=== PATIENT | male | born 1960 | race Caucasian/White ===

== ENCOUNTER 2017-08-15 13:59 | Outpatient (CLI) | payer BC ==
[2017-08-15 15:21] LABS: #Basophils 0.1 thou/uL (0.0-0.2); #Eosinphils 0.1 thou/uL (0.0-0.7); #Lymphocytes 1.5 thou/uL (1.20-3.40); #Monocytes 0.8 thou/uL (0.11-0.59); #Neutrophils 7.6 thou/uL (1.40-6.50); %Basophils 0.6 % (0.0-1.0); %Eosinophils 1.1 % (0.0-10.0); %Lymphocytes 15.1 % (21.0-51.0); %Monocytes 7.5 % (0.0-10.0); %Neutrophils 75.8 % (42.0-75.0); Hemoglobin 15.8 g/dL (14.0-18.0); Mean Corpuscular HGB CONC 35.5 g/dL (32.0-36.0); Mean Corpuscular Hemoglobin 31.3 pg (27.0-31.0); Mean Corpuscular Volume 88.2 fl (80.0-94.0); Mean Platelet Volume 8.5 fL (7.4-10.4); Platelet Count 229 thou/uL (130-400); RBC Distribution Width 12.5 % (11.5-14.5); Red Blood Cell (RBC) Count 5.04 mill/uL (4.70-6.10)
[2017-08-15 15:44] LABS: Anion Gap 13 mmol/L (10-20); BUN (Urea Nitrogen) 19 mg/dL (8.4-25.7); Calc. Creatinine Clearance 0 mL/min (70-130); Calcium 9.2 mg/dL (7.8-10.44); Carbon Dioxide 26 mmol/L (22-29); Chloride 101 mmol/L (98-107); Estimated GFR-MDRD 64; Glucose 274 mg/dL (70-105); Potassium 3.9 mmol/L (3.5-5.1); Sodium 136 mmol/L (136-145)
--- NOTE | 2017-08-16 07:38 | EKG ---
Test Reason : Blood Pressure : / mmHG Vent. Rate : 087 BPM Atrial Rate : 087 BPM P-R Int : 152 ms QRS Dur : 092 ms QT Int : 380 ms P-R-T Axes : 055 048 022 degrees QTc Int : 457 ms Normal sinus rhythm Cannot rule out Inferior infarct , age undetermined Intraventricular conduction delay Abnormal ECG When compared with ECG of 07-OCT-2003 21:10, No significant change was found Confirmed by DR. Mark MCKEON ([id number]) on 08/16/2017 7:38:28 AM Referred By: LILLIANA Confirmed By:DR. Mark MCKEON
== END 2017-08-15 14:00 | disposition home or self-care (01) ==
LOC: LABBT 13:59
PROVIDERS: ATTEND Orthopaedic Surgery
DX: Z01.818 Encounter for other preprocedural examination (principal); M75.101 Unspecified rotator cuff tear or rupture of right shoulder, not specified as traumatic
CPT/HCPCS: 80048; 85025; 93005; 93010

== ENCOUNTER 2017-08-17 05:49 | Day surgery (SDC) | payer BC ==
[2017-08-15 14:32] VITALS: BMI 31.5
[2017-08-17] MEDS ORDERED: CEFAZOLIN/Water 2 GM/20 ML SYRINGE ONE (06:25)
[2017-08-17] MEDS ORDERED: Fentanyl 100 MCG/2 ML VIAL ONE ×2 (06:29→07:28)
[2017-08-17] MEDS ORDERED: Midazolam HCl 2 mg/2 ml Vial ONE (06:29)
[2017-08-17] MEDS ORDERED: Lidocaine 1% (PF) 30 ML VIAL ONE (06:44)
[2017-08-17] MEDS ORDERED: Bupivacaine/Epinephrine 0.25% 30 ML VIAL ONE (06:56)
[2017-08-17] MEDS ORDERED: Ketorolac Tromethamine 30 MG/ML VIAL IVP PRN (07:18)
[2017-08-17] MEDS ORDERED: Ondansetron HCl/PF 4 MG/2 ML Vial IVP PRN (07:18)
[2017-08-17] MEDS ORDERED: traMADol HCl 50 MG TAB PO PRN ×2 (07:18)
[2017-08-17] MEDS ORDERED: Ropivacaine 0.2% 550 ML 550 ML NERVE BLCK SCH (07:18)
[2017-08-17] MEDS ORDERED: HYDROcodone/Acetaminophen 10/325 mg Tablet PO PRN ×2 (07:18)
[2017-08-17] MEDS ORDERED: Promethazine HCl 25 MG/ML VIAL IM PRN (07:18)
[2017-08-17] MEDS ORDERED: Zolpidem Tartrate 5 MG TAB PO PRN (07:18)
[2017-08-17] MEDS ORDERED: Fentanyl 100 MCG/2 ML VIAL IV PRN (07:19)
[2017-08-17] MEDS ORDERED: Morphine 10 MG/ML VIAL ONE (08:28)
--- NOTE | 2017-08-17 10:53 | OP ---
DATE OF PROCEDURE: 08/17/2017 PREOPERATIVE DIAGNOSES: Right shoulder with, 1. Degenerative labral tear including superior and posterior labrum. 2. Tear of the bicipital sling on both sides including superior subscapularis as well as leading edge of supraspinatus. 3. Complex tear of the supraspinatus tendon with a small extension into the infraspinatus. POSTOPERATIVE DIAGNOSES: SAME PROCEDURES PERFORMED: 1. Right shoulder arthroscopy with debridement and shaving of degenerative labral tear. 2. Arthroscopic rotator cuff repair. 3. Open biceps tenodesis. SURGEON: Quentin Araujo M.D. GRINDER OPERATOR TOOL: Lang Jesus PA-C. BLOOD LOSS: Less than 50 mL. COMPLICATIONS: None. He did go recovery room in stable condition. ANESTHESIA: He did have general anesthetic as well as a block. IMPLANTS USED IN THIS PROCEDURE: One titanium triple loaded anchor as well as one 7 x 23 composite Bio-Tenodesis screw, both of these was [employer] devices. INDICATIONS: This is a 57-year-old male who has failed nonoperative treatment for right shoulder pain and weakness and at this time opted to have surgery on the arm. DESCRIPTION OF PROCEDURE: After all appropriate consent forms were explained and signed, he was taken back to the operating room and at this time was given a general anesthetic. Once the level of anesthesia was appropriate, he was rolled into the left lateral decubitus position with all bony prominences well- padded. An axillary roll was placed underneath the left axilla. Bardales bag was inflated to hold him in this position. The arm was taken through full range of motion and was found to have no stiffness and was then hung up with 10 pounds in standard arthroscopic fashion. The right shoulder and upper extremity were then prepped and draped in the standard surgical fashion. Bony anatomic landmarks were drawn out and subacromial space was infiltrated with Marcaine with epinephrine. Posterior portal was established and the scope was placed into the shoulder joint. Anterior working portal was then made using a needle localization technique. Diagnostic arthroscopy commenced in the glenohumeral joint and immediately we noted a superior labral tear that was degenerative in nature including the biceps anchor. As I evaluated the biceps itself, there was some intratendinous tearing in the intra-articular portion of the tendon and at the tendon exited the shoulder, there was a tear in both the superior aspect of subscapularis leading to a defect in the sling as well as the leading edge of supraspinatus. Upon further evaluation of the cuff, there was a significant tear of the supraspinatus, but this was only on the intra-articular portion, but it went nearly all the way through the tendon itself. This extended back posteriorly into the leading portion of the infraspinatus. The posterior labrum was also found to be degenerative. The axillary pouch was found to be intact. The articular surface of the glenoid was in good condition. The humeral head did have some grade II changes in the posterior aspect of the humeral head. At this time, using the shaver and surface energy, we first coagulated significant synovitic changes inside the glenohumeral joint. We then removed this as well as debriding the superior and inferior slings as well as the labrum superiorly and posteriorly as well as the supraspinatus. The small amount of tissue still held onto the humeral head from the supraspinatus tear was also debrided at this time. At this time, we placed an 18-gauge needle through the biceps and placed a FiberStick suture through this. The biceps was removed off the superior labrum using arthroscopic scissors. This area was gently debrided with the shaver. At this time, no further treatment was needed in the glenohumeral joint. The scope was removed and repositioned into the subacromial space. Lateral working portal was made and at this time, the bursa was removed from off of the underlying cuff and we were able to palpate a defect, but again the most superior fibers were intact. At this time, 11 blade was used to cut through these couple of fibers that were left and we fell medially into the large rotator cuff tear. Shaver was introduced to smooth off the edges that gave us good tissue and again to remove tissue from the greater tuberosity insertion site. A passport cannula was placed laterally and at this time one triple anchor was placed into the tuberosity. All the sutures were pulled out anteriorly through the green cannula. We then ran these in mattress fashion through our tear and tied these sequentially. Secondary to the size of the tear and the fact that it came together very nicely, I did not feel it was necessary for double row repair with one anchor tear and therefore, the sutures were cut. Again, the arm was taken through full range of motion. Rotator cuff appeared to be closed up very nicely. At this time, the scope was removed, so we could proceed with our open tenodesis. Where the stitch came out from the 18 gauge needle, a 15 blade was used to make a longitudinal incision down through skin. Bovie was used to coagulate any brisk venous bleeding. We then split the deltoid fascia sharply and used our finger to dissect the deltoid in line with its fibers to get down to the underlying transverse humeral ligament. Biceps tendon was pulled out and any brisk venous bleeding was coagulated. All synovitic tissue was removed circumferentially from the biceps tendon and from the bicipital groove. We then sutured the tendon, cutoff the intra-articular portion, placed our pin, reamed with a 7 mm reamer to a depth of 25 and fixated our biceps with a 7 x 23 BioComposite Bio-Tenodesis screw in standard fashion. Sutures were tied over top of this, so the screw would not back out. At this time, this was laid down and the deltoid fascia was allowed to fall superiorly over top of this. Arm was taken through full range of motion. No significant catching was noted. We then thoroughly irrigated and dried our wound. We ran our deltoid fascia with 0 Vicryl, 2-0 Vicryl, and nylon sutures were used to close over incisions. Bulky sterile dressing was applied. The patient was awakened and taken to the recovery room in stable condition. All counts were correct at the end of the case and he did receive preoperative IV antibiotics. ANGELO
== END 2017-08-17 12:05 | disposition home or self-care (01) ==
LOC: SDC 05:49
PROVIDERS: ATTEND Orthopaedic Surgery
PROC: 0LS10ZZ Reposition Right Shoulder Tendon, Open Approach (ICD-10-PCS; principal; 2017-08-17)
PROC: 0LQ14ZZ Repair Right Shoulder Tendon, Percutaneous Endoscopic Approach (ICD-10-PCS; principal; 2017-08-17)
DX: M75.111 Incomplete rotator cuff tear or rupture of right shoulder, not specified as traumatic (principal); S46.121A Laceration of muscle, fascia and tendon of long head of biceps, right arm, initial encounter; S43.491A Other sprain of right shoulder joint, initial encounter
CPT/HCPCS: A4306; C1713; J2001; J2250; J2270; J2795; J3010